=== PATIENT | female | born 1975 | race Caucasian/White ===

== ENCOUNTER 2017-01-21 21:21 | Emergency (ER) | payer OTHER ==
[2017-01-21 22:02] LABS: RED BLOOD COUNT 4.94 M/UL (4.00-5.10); WHITE BLOOD COUNT 7.8 K/UL (4.5-11.0)
[2017-01-21 22:14] LABS: BUN/CREATININE RATIO 18 (0-10)
== END 2017-01-22 00:06 | disposition home or self-care (01) ==
LOC: ER1 21:21
PROVIDERS: Emergency Medicine
DX: A08.4 Viral intestinal infection, unspecified (principal); I10 Essential (primary) hypertension; Z88.0 Allergy status to penicillin
CPT/HCPCS: 36415; 80053; 83690; 85025; 96361; 96374; 96375; 96376; 99284; J1200; J2405; J2550